=== PATIENT | female | born 1985 | race Two or more races ===

== ENCOUNTER 2024-05-27 08:27 | Inpatient (IN) | payer MEDICAID, OTHER ==
[~2024-05-27] VITALS: Ht 157.5 cm; Wt 67.7 kg
[2024-05-27 08:58] LABS: Urine Bacteria None Seen /hpf (None Seen)
[2024-05-27] MEDS: SODIUM CHLORIDE 0.9% 1,000 ML IV ONE ×2 (09:09→09:10)
[2024-05-27] MEDS: MORPHINE SULFATE 4 MG/ML SYR/VIAL IV ONE ×2 (09:11→15:22)
[2024-05-27] MEDS: ONDANSETRON HCL 4 MG/2 ML VIAL IV ONE ×2 (09:11→15:24)
[2024-05-27 09:15] VITALS: PULSE 84; O2SAT 98
[2024-05-27 09:28] LABS: Basophils # (auto) 0 10 ^3/uL (0-0.2); Basophils % (auto) 0.5 % (0.0-2.0); Eosinophils # (auto) 0 10 ^3/uL (0-0.8); Eosinophils % (auto) 0.6 % (0.0-7.0); Hematocrit 35.8 % (36.0-46.0); Hemoglobin 12.6 g/dL (12.2-16.2); Lymphocytes % (auto) 36.3 % (10.0-50.0); Mean Corpuscular Hemoglobin 33.9 pg (28.0-32.0); Mean Corpuscular Volume 96.8 fL (80.0-100.0); Monocytes # (auto) 0.4 10 ^3/uL (0-1.3); Monocytes % (auto) 7.7 % (0.0-12.0); Neutrophils % (auto) 54.9 % (37.0-80.0); Platelet Count (auto) 271 10^3/uL (140-450); Red Cell Distribution Width 14.5 % (11.8-14.3); White Blood Cell 5.5 10^3/uL (4.4-10.8)
[2024-05-27 09:32] LABS: Urine Blood 2+ /uL (Negative); Urine Clarity Clear (Clear); Urine Color Light-Yellow (Yellow); Urine Protein, UAD Negative (Negative); Urine Specific Gravity 1.009 (1.001-1.035); Urine Urobilinogen Normal (Negative); Urine WBC <1 /hpf (0 - 5); Urine pH 6.5 (5.0-9.0)
[2024-05-27 09:39] LABS: Alanine Aminotransferase 18 U/L (7-40); Albumin 4.9 g/dL (3.2-4.8); Alkaline Phosphatase 82 U/L (46-116); Anion Gap 10 (5-15); Aspartate Aminotransferase 17 U/L (13-40); BUN/Creatinine Ratio 9.7 (10.0-20.0); Bilirubin, Total 0.4 mg/dL (0.2-1.0); Blood Urea Nitrogen 7 mg/dL (9-23); Carbon Dioxide 23 mmol/L (20-30); Chloride 103 mmol/L (98-107); Glucose 86 mg/dL (74-106); Potassium 3.5 mmol/L (3.5-5.1); Sodium 136 mmol/L (136-145); Total Protein 7.9 g/dL (5.7-8.2)
[2024-05-27 10:59] VITALS: PULSE 83; RESP 16; O2SAT 100
[2024-05-27 11:13] LABS: Lipase 38 U/L (12-53)
[2024-05-27] MEDS: cefTRIAXone 1GM/50ML D5W 50 ML IV ONE (15:32)
[2024-05-27] MEDS ORDERED: SODIUM CHLORIDE 0.9% 1,000 ML IV SCH (16:00)
[2024-05-27 17:39] VITALS: BP 132/79; PULSE 74; RESP 17; TEMP 97.9; O2SAT 98
[2024-05-27 18:13] VITALS: BP 132/79; PULSE 74; RESP 17; TEMP 97.9; O2SAT 98
[2024-05-27] MEDS: PANTOPRAZOLE 40 MG/10 ML VIAL INJ IV SCH (18:58)
[2024-05-27] MEDS: metroNIDAZOLE 500MG/100ML 100 ML IV ONE (18:58)
[2024-05-27] MEDS: SODIUM CHLORIDE 0.9% 1,000 ML IV SCH (19:47)
[2024-05-27 20:00] VITALS: PULSE 71; RESP 18; O2SAT 96
[2024-05-27 21:00] VITALS: BP 135/81; PULSE 71; RESP 18; TEMP 98.3; O2SAT 96
[2024-05-27] MEDS: metroNIDAZOLE 500MG/100ML 100 ML IV SCH (21:08)
[2024-05-27] MEDS: MORPHINE SULFATE INJ 2 MG/ml SYRG IV PRN (21:09)
[2024-05-27] MEDS: ONDANSETRON HCL 4 MG/2 ML VIAL IV PRN (21:30)
[2024-05-28] VITALS (8 sets, daily range): BP systolic 113–141; BP diastolic 65–91; PULSE 60–83; RESP 16–20; TEMP 98–99; O2SAT 97–100
[2024-05-28 06:09] LABS: Basophils # (auto) 0 10 ^3/uL (0-0.2); Basophils % (auto) 0.6 % (0.0-2.0); Eosinophils # (auto) 0.1 10 ^3/uL (0-0.8); Hemoglobin 10.6 g/dL (12.2-16.2); Lymphocytes # (auto) 1.7 10 ^3/uL (0.4-5.4); Monocytes # (auto) 0.4 10 ^3/uL (0-1.3); Monocytes % (auto) 7.6 % (0.0-12.0); Neutrophils # (auto) 2.6 10 ^3/uL (1.6-8.6); Platelet Count (auto) 191 10^3/uL (140-450)
[2024-05-28 06:10] LABS: Anion Gap 6 (5-15); Carbon Dioxide 24 mmol/L (20-30); Chloride 109 mmol/L (98-107); Potassium 3.3 mmol/L (3.5-5.1); Sodium 139 mmol/L (136-145)
[2024-05-28 06:11] LABS: Eosinophils % (auto) 1.2 % (0.0-7.0); Hematocrit 29.8 % (36.0-46.0); Lymphocytes % (auto) 36.1 % (10.0-50.0); Mean Corpuscular Hemoglobin 34.2 pg (28.0-32.0); Mean Corpuscular Hgb Conc. 35.5 g/dL (32.0-36.0); Mean Corpuscular Volume 96.3 fL (80.0-100.0); Neutrophils % (auto) 54.5 % (37.0-80.0); Red Blood Cells 3.09 10^6/uL (4.0-5.20); Red Cell Distribution Width 13.9 % (11.8-14.3); White Blood Cell 4.7 10^3/uL (4.4-10.8)
[2024-05-28 06:12] LABS: Calcium 8.2 mg/dL (8.7-10.4)
[2024-05-28 06:16] LABS: Glucose 80 mg/dL (74-106)
[2024-05-28 06:21] LABS: BUN/Creatinine Ratio 6.9 (10.0-20.0); Blood Urea Nitrogen < 5 mg/dL (9-23)
[2024-05-28] MEDS: cefTRIAXone 1GM/50ML D5W 50 ML IV SCH (09:45)
[2024-05-28 10:39] LABS: Blood Alcohol < 3.0 mg/dL (<10); Magnesium 1.5 mg/dL (1.6-2.6); Triglycerides 130 mg/dL (< 150)
[2024-05-28 10:40] LABS: LDL Cholesterol 75 mg/dL (< 100)
[2024-05-28 10:41] LABS: Cholesterol 131 mg/dL (< 200); HDL Cholesterol 42 mg/dL (40-59)
[2024-05-28 10:43] LABS: Thyroid Stimulating Hormone 0.79 uIU/mL (0.55-4.78)
[2024-05-28 10:48] LABS: Beta HCG, Quantitative < 1.5 mIU/mL (1.5-4.2)
[2024-05-28] MEDS: POTASSIUM CHL 20 Meq TABLET PO ONE (11:15)
[2024-05-28 11:23] LABS: INR 1.08 (0.9-1.15); Partial Thromboplastin Time 27.5 SEC (24.5-34.5); Prothrombin Time 11.4 sec (9.3-11.8)
[2024-05-28] MEDS: MAGNESIUM SULFATE 1GM/100ML 100 ML IV SCH (12:02)
[2024-05-28] MEDS ORDERED: ACETAMINOPHEN 325 MG TAB PO PRN (13:15)
[2024-05-28 13:35] LABS: Amphetamine Screen, Urine Neg (NEGATIVE)
[2024-05-28 13:36] LABS: Barbiturate Scree,Urine Neg (NEGATIVE); Benzodiazephine Screen, Urine Neg (NEGATIVE); Cannabinoid Screen, Urine Neg (NEGATIVE); Cocaine Screen, Urine Neg (NEGATIVE); Opiate Scree,Urine Neg (NEGATIVE); Phencyclidine Screen, Urine Neg (NEGATIVE)
[2024-05-28] MEDS: CALCIUM GLUC 1,000mg/50ml-NS 50 ML IV ONE (18:44)
[2024-05-29 01:00] VITALS: BP 120/78; PULSE 65; RESP 20; TEMP 98.3; O2SAT 97
[2024-05-29 06:30] LABS: Basophils # (auto) 0 10 ^3/uL (0-0.2); Basophils % (auto) 0.6 % (0.0-2.0); Eosinophils # (auto) 0.1 10 ^3/uL (0-0.8); Eosinophils % (auto) 1.9 % (0.0-7.0); Hematocrit 33.3 % (36.0-46.0); Hemoglobin 11.5 g/dL (12.2-16.2); Lymphocytes # (auto) 1.5 10 ^3/uL (0.4-5.4); Lymphocytes % (auto) 31.6 % (10.0-50.0); Mean Corpuscular Hemoglobin 33.3 pg (28.0-32.0); Mean Corpuscular Hgb Conc. 34.6 g/dL (32.0-36.0); Mean Corpuscular Volume 96.2 fL (80.0-100.0); Monocytes # (auto) 0.4 10 ^3/uL (0-1.3); Monocytes % (auto) 8.6 % (0.0-12.0); Neutrophils # (auto) 2.7 10 ^3/uL (1.6-8.6); Neutrophils % (auto) 57.3 % (37.0-80.0); Nucleated Red Blood Cells % 0.1 %; Platelet Count (auto) 222 10^3/uL (140-450); Red Blood Cells 3.46 10^6/uL (4.0-5.20); Red Cell Distribution Width 14.1 % (11.8-14.3); White Blood Cell 4.8 10^3/uL (4.4-10.8)
[2024-05-29 06:38] LABS: Chloride 106 mmol/L (98-107); Potassium 3.5 mmol/L (3.5-5.1); Sodium 138 mmol/L (136-145)
[2024-05-29 06:39] LABS: Anion Gap 7 (5-15); Carbon Dioxide 25 mmol/L (20-30)
[2024-05-29 06:40] LABS: Calcium 8.9 mg/dL (8.7-10.4)
[2024-05-29 06:45] LABS: BUN/Creatinine Ratio 6.8 (10.0-20.0); Blood Urea Nitrogen 5 mg/dL (9-23); Glucose 88 mg/dL (74-106)
[2024-05-29 09:00] VITALS: BP 111/64; PULSE 69; RESP 16; TEMP 98.1; O2SAT 98
[2024-05-29] MEDS: ERGOCALCIFEROL 50,000 UNIT(1.25MG) CAP PO SCH (09:22)
[2024-05-29] MEDS: POTASSIUM CHL 20 Meq TABLET PO ONE (09:22)
[2024-05-29] MEDS: CYANOCOBALAMIN (B-12) 1000 MCG/1 ML VIAL SUBCUT ONE (09:23)
[2024-05-29 12:37] VITALS: BP 129/84; PULSE 67; RESP 18; TEMP 98.6; O2SAT 99
[2024-05-29] MEDS ORDERED: CHOL1CAP47 PO (14:29)
[2024-05-30 10:06] LABS: Chlamydia Trachomatis, NAA Negative (Negative); Neisseria gonorrhoeae, NAA Negative (Negative)
[2024-05-31 08:50] LABS: Hepatitis B Surface Antigen Negative (Negative)
[2024-05-31 09:12] LABS: Hepatitis C Antibody Negative (Negative)
== END 2024-05-29 16:26 | disposition home or self-care (01) | DRG 249 ==
LOC: ER 08:27 → OVERFLOW 16:02 → CENTRAL 17:22
PROVIDERS: ADMIT Internal Medicine Pulmonary Disease; ATTEND Emergency Medicine
DX: A09 Infectious gastroenteritis and colitis, unspecified (principal); E83.51 Hypocalcemia; E83.42 Hypomagnesemia; K57.30 Diverticulosis of large intestine without perforation or abscess without bleeding; N92.6 Irregular menstruation, unspecified; N84.0 Polyp of corpus uteri; N93.0 Postcoital and contact bleeding; N92.3 Ovulation bleeding; N97.9 Female infertility, unspecified; N93.9 Abnormal uterine and vaginal bleeding, unspecified; I16.0 Hypertensive urgency; E87.6 Hypokalemia; Z98.891 History of uterine scar from previous surgery; Z80.49 Family history of malignant neoplasm of other genital organs; Z80.0 Family history of malignant neoplasm of digestive organs; Z85.41 Personal history of malignant neoplasm of cervix uteri
CPT/HCPCS: 36415; 74176; 76830; 76856; 80048; 80053; 80061; 80307; 80320; 81001; 81025; 82306; 82310; 82607; 83036; 83690; 83735; 84443; 84702; 85025; 85610; 85730; 86703; 86803; 87340; 93005; G0378; J2405; J2470; J3490